=== PATIENT | male | born 1945 | race Caucasian/White ===

== ENCOUNTER 2024-11-15 09:16 | Emergency (ER) | payer OTHER, SELFPAY ==
[2024-11-15 09:19] VITALS: BP 200/94
[2024-11-15 09:56] LABS: Urine Albumin Negative (Neg - Trace); Urine Bilirubin 2+ (Negative); Urine Character Clear (Clear); Urine Glucose Negative (Negative); Urine Ketone Negative (Negative); Urine Leukocyte Negative (Negative); Urine Nitrite Positive (Negative); Urine Occult Blood Negative (Negative); Urine Specific Gravity 1.015 (<1.030); Urine Urobilinogen 2+ (Neg - 1+)
[2024-11-15 10:11] LABS: Urine Color Orange
[2024-11-15 10:37] LABS: Urine Amorphous Seen
[2024-11-15 10:38] LABS: Urine Red Blood Cell 0-2 /HPF (0-2)
[2024-11-15 10:39] LABS: Urine Bacteria Few (Negative); Urine White Cell 0-2 /HPF (0-5)
--- NOTE | 2024-11-15 11:10 | ED.GENMED ---
History of Present Illness
General
Chief Complaint: Urinary Symptoms
Source: patient
Exam Limitations: none
Time Seen by Provider: 11/15/24 10:03
History of Present Illness
History of Present Illness:
78-year-old male presents with increasing difficulty with urinating over the past week. He notes increased frequency and dysuria. He denies any hematuria or fever. He notes lower abdominal pain that radiates to the flanks bilaterally. He is
quite healthy otherwise. He has been told in the past he has a moderately enlarged prostate. No other complaint
Past History
Past History
ED Past Medical History: Psychiatric (Anxiety) and Other (Epididymitis, kidney stone)
ED Past Surgical History: Appendectomy
Social History
Tobacco: Non-smoker
Alcohol: Occasional (rare)
Personal: Single
Living: alone
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
Family History
Family History: Other (Noncontributory)
Phy Exam
Physical Exam
Physical Exam:
General: Well-appearing nontoxic male no acute respiratory distress
HEENT: Normocephalic atraumatic
Heart: Regular rate and rhythm
Lungs: Clear no wheeze
Abdomen is soft suprapubic tenderness is noted no costovertebral angle tenderness normal bowel sounds nondistended
Extremities: No cyanosis or edema
Course
Orders/Labs/Results
Orders:
Orders
11/15/24 09:31
Urinalysis Reflex To Culture Urgent
Date Specimen was Collected: 11/15/24
Time Specimen was Collected: 09:21
Urine Microscopic Reflex Cult Urgent
Urine Culture Urgent
ANGE Source: U
Specimen Description:
Date Specimen was Collected: 11/15/24
Time Specimen was Collected: 09:21
11/15/24 12:09
Lidocaine 2% [Lidocaine Uro-Jet 2%] 1 syringe .ROUTE .[facility]
Abnormal Lab Results
11/15/24
09:31
Urine Nitrite (Reflex) Positive A
(Negative)
Urine Bilirubin 2+ A
(Negative)
Urine Urobilinogen 2+ A
(Neg - 1+)
Urine Bacteria (Reflex) Few A
(Negative)
Vital Signs
Initial and Last Documented VS:
Initial Vital Signs
Temp Pulse Resp BP Pulse Ox
98.5 F 85 18 200/94 98
11/15/24 09:19 11/15/24 09:19 11/15/24 09:19 11/15/24 09:19 11/15/24 09:19
Last Documented Vital Signs
Temp Pulse Resp BP Pulse Ox
98.5 F 85 18 200/94 98
11/15/24 09:19 11/15/24 09:19 11/15/24 09:19 11/15/24 09:19 11/15/24 09:19
MDM/Problems Addressed
Differential Diagnosis Includes:
Urinary symptoms with suprapubic discomfort consider UTI versus retention versus enlarged prostate. No findings on exam consistent with kidney stone.
Check urine. Explained to patient that he is retaining too much urine. Discussed potential for Elam. Reached out to urology secondary to patient's request
*Critical Care Note
Total Time (30-74mins, 75-104mins- exclusive of procedures): Not Applicable
Update Note
Update Note:
urinalysis somewhat concerning for UTI given his symptoms of dysuria and frequency will cover pending cultures. I discussed with patient regarding catheter as well as urology. Patient quite uncomfortable with the amount of urine he is retaining.
For therapeutic reasons a straight catheter was performed to decompress the bladder. Patient did not want a Elam catheter. Urology recommended against a Elam catheter as well. urology able to see him in the office in 2 days.
ED Attending Note
-
Portions of this chart may have been created with voice recognition software.� Occasional wrong word or��sound alike� substitutions may have occurred due to the inherent limitations of voice recognition software.
Discharge Plan
Departure
Patient Disposition: Home (Routine Discharge)
Date of Disposition: 11/15/24
Time of Disposition: 13:09
Patient with high blood pressure during this ER visit?: No
Discharge Problem:
Acute UTI, Acute urinary retention
Prescriptions:
New
cefdinir 300 mg capsule
300 mg PO BID Qty: 14 0RF
No Action
hydrocodone-acetaminophen 1 TABLET tablet
1 tab PO QIDPRN PRN (Reason: pain) Qty: 20 0RF
tamsulosin 0.4 MG capsule
0.4 mg PO DAILY Qty: 20 0RF
Referrals:
Edgar Bryan MD [Active] -
UNKNOWN - PT DOES,NOT KNOW [Family Provider] -
Activity Restrictions/Additional Instructions:
Take antibiotics as directed. Please return here for worsening symptoms. Follow-up with urology. Please call to confirm your appointment time. You may fax any information you have to [phone]. You may call the office at [phone].
Interventions
Interventions:
*Risk Screen - Suicide Last Done: 11/15/24 09:19
*General Assessment Last Done: 11/15/24 09:19
*Neglect/Abuse Screening Last Done: 11/15/24 09:19
*ED COVID-19 Vaccine History Last Done: 11/15/24 09:19
ED-Male Genitourinary Assessment Last Done: 11/15/24 11:00
Discharge Date and Time
Print Language: MACEDONIAN
[2024-11-15 12:00] VITALS: BP 174/88
== END 2024-11-15 13:20 | disposition home or self-care (01) ==
LOC: EMR 09:16
PROVIDERS: EMERGENCY PHYSICIAN Emergency Medicine
DX: N39.0 Urinary tract infection, site not specified (principal); R33.9 Retention of urine, unspecified
CPT/HCPCS: 99283; 51701; 81003; 81015; 87086

== ENCOUNTER → 2025-09-06 08:31 | Outpatient (REF) | payer OTHER, SELFPAY | LOC: RAD 08:31 | PROVIDERS: ATTENDING PHYSICIAN Family Medicine | DX: I71.21 Aneurysm of the ascending aorta, without rupture (principal) | CPT/HCPCS: 71275; Q9967 ==